=== PATIENT | male | born 1990 | race Caucasian/White ===

== ENCOUNTER 2020-03-21 06:23 | Day surgery (SDC) | payer OTHER ==
[2020-03-15 11:22] LABS: BASOPHILS % (AUTO) 0.7 % (0-1); EOSINOPHILS # (AUTO) 0.1 X10'3 (0-0.9); EOSINOPHILS % (AUTO) 2.5 % (0-6); LYMPHOCYTES # (AUTO) 1.3 X10'3 (1.1-4.8); LYMPHOCYTES % (AUTO) 29.7 % (21-51); MEAN CORPUSCULAR HEMOGLOBIN 30.4 PG (27.0-31.0); MEAN CORPUSCULAR HGB CONC 34.6 g/dL (33.0-36.5); MEAN CORPUSCULAR VOLUME 87.9 FL (78-98); MEAN PLATELET VOLUME 9.1 FL (7.4-10.4); MONOCYTES # (AUTO) 0.5 X10'3 (0-0.9); MONOCYTES % (AUTO) 10.9 % (2-12); NEUTROPHILS # (AUTO) 2.4 X10'3 (1.8-7.7); NEUTROPHILS % (AUTO) 56.2 % (42-75); PRE OP HEMATOCRIT 45.2 % (42.0-52.0); PRE OP HEMOGLOBIN 15.6 g/dL (14.0-17.9); PRE OP PLATELET COUNT 219 X10'3 (140-440); RED BLOOD COUNT 5.14 X10'6 (4.70-6.10); RED CELL DISTRIBUTION WIDTH 13.1 % (11.5-14.5)
[2020-03-15 11:32] LABS: ALBUMIN 4.3 G/DL (3.4-5.0); ALBUMIN/GLOBULIN RATIO 1.5 (1.1-1.5); ALKALINE PHOSPHATASE 59 IU/L (46-116); BLOOD UREA NITROGEN 16 MG/DL (7-18); BUN/CREATININE RATIO 15.2 (5.4-32.0); CALCIUM 9.1 MG/DL (8.5-10.1); CHLORIDE 106 MMOL/L (99-107); CREATININE 1.05 MG/DL (0.60-1.10); PRE OP ALT 26 U/L (30-65); PRE OP ANION GAP 7 (8-16); PRE OP AST 21 U/L (10-37); PRE OP BILIRUB, TOTAL 0.8 MG/DL (0.0-1.0); PRE OP GLUCOSE 87 MG/DL (70-104); PRE OP POTASSIUM 4.4 MMOL/L (3.4-5.1); PRE OP SODIUM 142 MMOL/L (135-145); TOTAL CARBON DIOXIDE 29.1 MMOL/L (24-32); TOTAL PROTEIN 7.2 G/DL (6.4-8.2); eGFR 82 ML/MIN
[2020-03-15 12:49] LABS: PARTIAL THROMBOPLASTIN TIME 28 SECONDS (22-32)
[2020-03-21] VITALS (12 sets, daily range): BP systolic 123–150; BP diastolic 64–83
[~2020-03-21] VITALS: Ht 190.5 cm; Wt 105.0 kg
[~2020-03-21 06:23] MED LIST: LOSA50TA3 PO; MONT10TA26 PO; famotidine 20mg tablet PO ONE; oxymetazoline 15 ML nasal spray NS PRN; ringers solution, lacted 1,000 ML IV SCH; scopolamine 1.5mg patch.TD72 TD ONE
[2020-03-21] MEDS ORDERED: methylPREDNISolone acetate 80mg/ml inj**IM only ONE (06:44)
[2020-03-21] MEDS ORDERED: cocaine 4% topical solution 4ml bottle ONE (06:44)
[2020-03-21] MEDS ORDERED: mupirocin 2% ointment 22GM ONE ×2 (06:45→06:46)
[2020-03-21] MEDS ORDERED: cefTAZidime 1gm inj ONE (06:45)
[2020-03-21] MEDS ORDERED: LIDOcaine 1% W/epiNEPHrine 1:100,000 20ml vial ONE (06:45)
[2020-03-21] MEDS ORDERED: oxymetazoline 15 ML nasal spray NS ONE ×2 (06:46)
[2020-03-21] MEDS ORDERED: sevoflurane 250ml liquid IH ONE (08:10)
[2020-03-21] MEDS ORDERED: midazolam 2 mg/2 ml injection ONE (08:18)
[2020-03-21] MEDS ORDERED: fentaNYL/PF 50MCG/1 ML 2ML syringe ONE (08:40)
[2020-03-21] MEDS ORDERED: ringers solution, lacted 1,000 ML IV SCH (08:48)
[2020-03-21] MEDS ORDERED: hydrALAZINE 20mg/ml inj. IV PRN (08:50)
[2020-03-21] MEDS ORDERED: ondansetron/PF 4mg/2ml inj IV PRN (08:50)
[2020-03-21] MEDS ORDERED: acetaminophen 1,000mg/100ml IV 100 ML IV PRN (08:50)
[2020-03-21] MEDS ORDERED: proCHLORperazine 10 MG/2 ml inj IV PRN (08:50)
[2020-03-21] MEDS ORDERED: morphine 2 MG/ML inj. syringe IV PRN (08:50)
[2020-03-21] MEDS ORDERED: meperidine/PF 25mg/ml syringe IV PRN ×3 (08:50)
[2020-03-21] MEDS ORDERED: labetalol 20mg/4ml (5mg/ml) syringe IV PRN (08:50)
[2020-03-21] MEDS ORDERED: morphine 4 MG/ML inj SYRINge IV PRN (08:50)
[2020-03-21] MEDS ORDERED: BUPIVAcaine 0.5% W/EPI /PF 30ml vial IJ ONE (09:19)
[2020-03-21] MEDS ORDERED: LIDOcaine 2% (20mg/ml) 5ml vial ONE (09:52)
[2020-03-21] MEDS ORDERED: propofol inj 20 ML IV ONE (09:52)
[2020-03-21] MEDS ORDERED: ondansetron/PF 4mg/2ml inj ONE (09:52)
[2020-03-21] MEDS ORDERED: dexamethasone sod phosphate 4mg/ml inj. ONE (09:52)
--- NOTE | 2020-03-21 10:12 | NUR ---
RECEIVED FROM OR VIA [facility] ACCOMPANIED BY ANESTHESIOLOGIST DR HORN, REPORT GIVEN. PT DROWSY BUT AROUSES EASILY WITH NO COMPLAINT OF PAIN AT THIS TIME. COTTENOID SPONGES BILATERAL NARES WITH SCANT SS DRAINAGE NOTED. VSS, TAVARES, ABD SOFT, GOOD CAP REFILL. PIV R AC PATENT AND RUNNING LR AT 100 ML/HR. RESTING COMFORTABLY
[2020-03-21] MEDS ORDERED: salt irrigation nasal spray 45 ML SPRAY NS PRN (10:30)
[2020-03-21] MEDS ORDERED: losartan 50mg tablet PO PRN (10:30)
--- NOTE | 2020-03-21 11:52 | NUR ---
PT AWAKE AND ALERT WITH COMPLAINT OF PAIN LEVEL AT 3 AT THIS TIME.TOLERATING FLUIDS, ABLE TO DRESS SELF AND AMBULATE. 4X4 [place] DRESSING CDI. VSS, TAVARES, ABD SOFT, GOOD CAP REFILL.20 GAUGE PIV R AC DC/D CATH TIP INTACT . DISCHARGE INSTRUCTIONS GIVEN AND PT VERBALIZED UNDERSTANDING. TRANSPORTED VIA WHEELCHAIR TO IN PRIVATE VEHICLE TO HOME.
[2020-03-21] MEDS ORDERED: mupirocin 2% nasal ointment 1gm UD NS SCH (20:00)
== END 2020-03-21 11:52 | disposition home or self-care (01) ==
LOC: PAS 06:23
PROVIDERS: ATTEND Otolaryngology
DX: J34.2 Deviated nasal septum (principal); J34.3 Hypertrophy of nasal turbinates; J32.8 Other chronic sinusitis; J33.8 Other polyp of sinus; I10 Essential (primary) hypertension; Z20.828 Contact with and (suspected) exposure to other viral communicable diseases; Z98.890 Other specified postprocedural states; Z79.899 Other long term (current) drug therapy; Z79.01 Long term (current) use of anticoagulants
CPT/HCPCS: 30140; 30520; 31255; 31267; 36415; 61782; 70486; 76380; 80053; 82948; 85025; 85576; 85610; 85730; 87635; A6402; C9250; C9803; J0131; J0713; J1040; J1100; J2001; J2175; J2250; J2405; J2704; J3010; J7040; J7120; A4618; A7000